=== PATIENT | male | born 1935 | race Hispanic/Latino ===

== ENCOUNTER 2021-04-22 10:43 | Emergency (ER) | payer OTHER ==
[~2021-04-22] VITALS: Ht 165.1 cm; Wt 63.5 kg
[~2021-04-22 10:43] MED LIST: AMLO-257 PO; ATOR20TA65 PO; FERS325 PO; LISI40TA9 PO; METO100T14 PO; OMEP20CA12 PO
[2021-04-22 11:14] LABS: BASOPHILS % (AUTO) 0.4 % (0.0-5.0); EOSINOPHILS % (AUTO) 2.7 % (0.0-8.0); HEMATOCRIT 40.5 % (42-54); LYMPHOCYTES % (AUTO) 18.2 % (21.0-51.0); MEAN CORPUSCULAR HEMOGLOBIN 27.7 pg (27.0-33.0); MEAN CORPUSCULAR HGB CONC 32.1 g/dL (32.0-36.0); MEAN CORPUSCULAR VOLUME 86.4 fL (79-99); MONOCYTES % (AUTO) 11.5 % (3.0-13.0); NEUTROPHILS % (AUTO) 66.2 % (40.0-77.0); PLATELET COUNT (AUTO) 222 K/uL (130-400); RED BLOOD CELL COUNT(AUTO) 4.69 MIL/uL (4.50-6.20); RED CELL DISTRIBUTION WIDTH 14.3 % (11.0-15.5); WHITE BLOOD COUNT (AUTO) 10.6 K/uL (4.8-10.8)
[2021-04-22 11:18] LABS: CREATININE 1.5 mg/dL (0.5-1.5); POTASSIUM 4.5 mmol/L (3.5-5.1)
[2021-04-22 11:23] LABS: ALBUMIN 2.9 g/dL (3.5-5.0); BILIRUBIN,TOTAL 1.5 mg/dL (0.2-1.0); TOTAL PROTEIN, SERUM 7.5 g/dL (6.0-8.3)
[2021-04-22 11:35] LABS: B-TYPE NATRIURETIC PEPTIDE 155 pg/mL (0-100)
[2021-04-22 13:29] VITALS: BP 167/73
[2021-04-22] MEDS ORDERED: AZIT500T2 PO (13:47)
[2021-04-22] MEDS ORDERED: GUAI100S13 PO (13:47)
[2021-04-22] MEDS ORDERED: ALBUTEROL 0.083% 2.5 MG/3 ML INH IH ONE (14:00)
== END 2021-04-22 14:05 | disposition home or self-care (01) ==
LOC: EDH 10:43
DX: J18.9 Pneumonia, unspecified organism (principal); R05.9 Cough, unspecified; Z20.822 Contact with and (suspected) exposure to COVID-19; E78.00 Pure hypercholesterolemia, unspecified; I10 Essential (primary) hypertension; Z98.890 Other specified postprocedural states; Z79.899 Other long term (current) drug therapy
CPT/HCPCS: 36415; 71045; 80053; 82550; 83880; 84484; 85025; 87635; 87804 ×2; 93005; 94640; 99285; C9803

== ENCOUNTER 2021-11-27 16:49 | Inpatient (IN) | payer MEDICARE, OTHER ==
[~2021-11-27] VITALS: Ht 165.1 cm; Wt 56.9 kg
[~2021-11-27 16:49] MED LIST changes: +ASPI-1026 PO; +CEFD300C3 PO; +GUAI100S13 PO; +METH4TAB3 PO; -OMEP20CA12 PO; +PANT40TA54 PO
[2021-11-27] MEDS ORDERED: IPRATROPIUM/ALBUTEROL SULFATE 3 ML SOLUTION IH ONE (17:30)
[2021-11-27 17:32] LABS: BASOPHILS % (AUTO) 0.1 % (0.0-5.0); EOSINOPHILS % (AUTO) 0.1 % (0.0-8.0); HEMATOCRIT 35.6 % (42-54); LYMPHOCYTES % (AUTO) 8.8 % (21.0-51.0); MEAN CORPUSCULAR HEMOGLOBIN 27.3 pg (27.0-33.0); MEAN CORPUSCULAR HGB CONC 31.2 g/dL (32.0-36.0); MEAN CORPUSCULAR VOLUME 87.5 fL (79-99); MONOCYTES % (AUTO) 5.6 % (3.0-13.0); NEUTROPHILS % (AUTO) 84.8 % (40.0-77.0); PLATELET COUNT (AUTO) 290 K/uL (130-400); RED BLOOD CELL COUNT(AUTO) 4.07 MIL/uL (4.50-6.20); RED CELL DISTRIBUTION WIDTH 15.5 % (11.0-15.5); WHITE BLOOD COUNT (AUTO) 18.7 K/uL (4.8-10.8)
[2021-11-27 17:46] LABS: CREATININE 1.1 mg/dL (0.5-1.5); POTASSIUM 4.2 mmol/L (3.5-5.1)
[2021-11-27 17:47] LABS: INR 1.1 (0.85-1.15); PROTHROMBIN TIME 11.9 SEC (9.6-11.6)
[2021-11-27 17:48] LABS: PARTIAL THROMBOPLASTIN TIME 28.6 SEC (26.3-35.5)
[2021-11-27 17:55] LABS: ALBUMIN 2.5 g/dL (3.5-5.0); TOTAL PROTEIN, SERUM 6.9 g/dL (6.0-8.3)
[2021-11-27] MEDS ORDERED: CEFEPIME HCL 2 GM VIAL IVP SCH (18:30)
[2021-11-27] MEDS ORDERED: CEFEPIME HCL 2 GM VIAL ONE (18:40)
[2021-11-27] MEDS ORDERED: VANCOMYCIN 1G VIAL IVPB ONE (19:00)
[2021-11-27] MEDS ORDERED: VANCOMYCIN 1G/250ML KIT 250 ML IV ONE (19:33)
[2021-11-27 21:24] LABS: APPEARANCE,URINE Clear (CLEAR); BILIRUBIN,URINE Negative (NEGATIVE); COLOR,URINE Yellow (YELLOW); GLUCOSE, URINE (UA) Negative (NEGATIVE); KETONES,URINE Trace mg/dL (NEGATIVE); LEUKOCYTE ESTERASE ,URINE Negative (NEGATIVE); NITRATE,URINE Negative (NEGATIVE); OCCULT BLOOD,URINE Negative (NEGATIVE); PH,URINE 5.5 (5.0-8.0); PROTEIN,URINE POS 1+ mg/dL (NEGATIVE)
[2021-11-27] MEDS ORDERED: VANCOMYCIN PROTOCOL PER PHARMACY IV PRN (21:30)
[2021-11-27] MEDS ORDERED: MORPHINE 2 MG SYG IV PRN (21:30)
[2021-11-27] MEDS ORDERED: ONDANSETRON 4MG INJ IV PRN (21:30)
[2021-11-27] MEDS ORDERED: ACETAMINOPHEN 325 MG TAB PO PRN ×2 (21:30)
[2021-11-27] MEDS: CEFEPIME HCL 2 GM VIAL IVP SCH (21:30)
[2021-11-27 21:31] LABS: BACTERIA,URINE Rare /HPF (None Seen); RBC,URINE 0-1 /HPF (0-1); SQUAMOUS EPITHELIAL CELL,UR Rare /HPF (0-2); WBC,URINE 0-1 /HPF (0-1)
[2021-11-27] MEDS: 0.9%NACL 1000ML 1,000 ML IV SCH (22:10)
[2021-11-27] MEDS: IPRATROPIUM/ALBUTEROL SULFATE 3 ML SOLUTION IH SCH (23:10)
[2021-11-28 00:20] VITALS: BP 107/65
[2021-11-28 04:00] VITALS: BP 133/67
[2021-11-28 06:03] LABS: BASOPHILS % (AUTO) 0.1 % (0.0-5.0); EOSINOPHILS % (AUTO) 0.8 % (0.0-8.0); HEMATOCRIT 32.3 % (42-54); LYMPHOCYTES % (AUTO) 14.8 % (21.0-51.0); MEAN CORPUSCULAR HEMOGLOBIN 26.8 pg (27.0-33.0); MEAN CORPUSCULAR HGB CONC 30.7 g/dL (32.0-36.0); MEAN CORPUSCULAR VOLUME 87.5 fL (79-99); MONOCYTES % (AUTO) 7.5 % (3.0-13.0); NEUTROPHILS % (AUTO) 76.2 % (40.0-77.0); PLATELET COUNT (AUTO) 229 K/uL (130-400); RED BLOOD CELL COUNT(AUTO) 3.69 MIL/uL (4.50-6.20); RED CELL DISTRIBUTION WIDTH 15.5 % (11.0-15.5); WHITE BLOOD COUNT (AUTO) 10.4 K/uL (4.8-10.8)
[2021-11-28 06:24] LABS: POTASSIUM 4.3 mmol/L (3.5-5.1); TOTAL PROTEIN, SERUM 5.8 g/dL (6.0-8.3)
[2021-11-28] MEDS: IPRATROPIUM/ALBUTEROL SULFATE 3 ML SOLUTION IH SCH ×4 (06:47→23:19)
[2021-11-28 06:54] VITALS: BP 130/65
[2021-11-28 07:09] LABS: ERYTHROCYTE SEDIMENTATION RATE 60 MM/HR (0-20)
[2021-11-28] MEDS: CEFEPIME HCL 2 GM VIAL IVP SCH ×2 (09:53→20:43)
[2021-11-28] MEDS: FAMOTIDINE 20MG VIAL IV SCH (09:53)
[2021-11-28] MEDS: ENOXAPARIN SODIUM 30 MG/0.3 ML SQ SCH (09:53)
[2021-11-28] MEDS ORDERED: GUAIFENESIN-CODEINE 5 ML SYRUP PO PRN (10:00)
[2021-11-28 11:00] VITALS: BP 147/58
[2021-11-28] MEDS: 0.9%NACL 1000ML 1,000 ML IV SCH (11:55)
[2021-11-28 16:05] VITALS: BP 145/73
[2021-11-28 19:00] VITALS: BP 142/68
[2021-11-28] MEDS: METOPROLOL TARTRATE 50 MG TAB PO SCH (20:43)
[2021-11-28] MEDS ORDERED: VANCOMYCIN 1G/250ML KIT 250 ML IV SCH (21:00)
[2021-11-29] VITALS: BP 134/67
[2021-11-29] MEDS: 0.9%NACL 1000ML 1,000 ML IV SCH (01:24)
[2021-11-29 04:00] VITALS: BP 129/66
[2021-11-29 05:24] LABS: HEMATOCRIT 29.2 % (42-54); MEAN CORPUSCULAR HEMOGLOBIN 26.1 pg (27.0-33.0); MEAN CORPUSCULAR HGB CONC 29.8 g/dL (32.0-36.0); MEAN CORPUSCULAR VOLUME 87.7 fL (79-99); RED BLOOD CELL COUNT(AUTO) 3.33 MIL/uL (4.50-6.20); RED CELL DISTRIBUTION WIDTH 15.4 % (11.0-15.5); WHITE BLOOD COUNT (AUTO) 9.6 K/uL (4.8-10.8)
[2021-11-29 05:34] LABS: CREATININE 0.9 mg/dL (0.5-1.5); POTASSIUM 4.2 mmol/L (3.5-5.1)
[2021-11-29] MEDS: IPRATROPIUM/ALBUTEROL SULFATE 3 ML SOLUTION IH SCH ×2 (06:09→10:50)
[2021-11-29 08:19] VITALS: BP 139/61
[2021-11-29] MEDS: ENOXAPARIN SODIUM 30 MG/0.3 ML SQ SCH (08:57)
[2021-11-29] MEDS: FAMOTIDINE 20MG VIAL IV SCH (08:57)
[2021-11-29] MEDS: METOPROLOL TARTRATE 50 MG TAB PO SCH (08:58)
[2021-11-29] MEDS: CEFEPIME HCL 2 GM VIAL IVP SCH (08:58)
[2021-11-29] MEDS ORDERED: IRON SUCROSE COMPLEX 300 MG in 0.9%NACL 50ML 50 ML IV SCH (09:00)
[2021-11-29] MEDS ORDERED: COMPOUND IV MISC 1 EACH IVSOLN MISC PRN (09:30)
[2021-11-29] MEDS ORDERED: AMOX1TAB16 PO (09:32)
[2021-11-29 13:08] VITALS: BP_SYST 139; BP_SYST 165; BP_DIAS 74; BP_DIAS 75
== END 2021-11-29 14:25 | disposition home or self-care (01) | DRG 177 ==
LOC: EDH 16:49 → EDHIP 21:36 → 3AH 11-28 00:19
PROVIDERS: ADMIT Hospitalist; ATTEND Hospitalist
DX: J15.6 Pneumonia due to other Gram-negative bacteria (principal); E43 Unspecified severe protein-calorie malnutrition; J96.21 Acute and chronic respiratory failure with hypoxia; E87.1 Hypo-osmolality and hyponatremia; R05.3 Chronic cough; D50.9 Iron deficiency anemia, unspecified; I45.10 Unspecified right bundle-branch block; I44.0 Atrioventricular block, first degree; I10 Essential (primary) hypertension; Z85.038 Personal history of other malignant neoplasm of large intestine; Z68.20 Body mass index [BMI] 20.0-20.9, adult
CPT/HCPCS: 36415; 71045; 80048; 80053; 81001; 82550; 83540; 83550; 83605; 84145; 84484; 85025; 85027; 85610; 85651; 85730; 87040; 87071; 87077; 87088; 87186; 87205; 87804; 93005; 94640; 94664; 97039; G0378; J0692; J1650; J1756; J3370; J3490; J7030